=== PATIENT | female | born 1940 | race Caucasian/White ===

== ENCOUNTER 2016-06-15 08:54 | Inpatient (IN) | payer MEDICARE ==
[~2016-06-15] VITALS: Ht 162.6 cm; Wt 62.1 kg
[2016-06-15] VITALS (9 sets, daily range): BP systolic 147–188; BP diastolic 67–94; PULSE 65–79; RESP 14–20; TEMP 96.1–97.6; O2SAT 97–100
[~2016-06-15 08:54] MED LIST: ASPI81 PO; CALC500T21 OR; HYDR-3533 PO; IBUP-232 PO; LAMO100 PO; OCUVTAB PO; TAB-TAB PO; TRAM50 PO
[2016-06-15] MEDS ORDERED: SODIUM CHLORIDE 0.9% FLUSH 10 ML FLUSH IVF PRN (09:00)
[2016-06-15] MEDS ORDERED: LAMO100 PO (09:02)
--- NOTE | 2016-06-15 09:05 | PD ---
HPI Chief Complaint: Neuro Symptoms/ Deficits Time Seen by Provider: 08:59 Travel History International Travel<30 days: No Contact w/Intl Traveler<30days: No Traveled to known affect area: No History of Present Illness HPI The patient is a 75-year-old female who presents emergency department for right sided numbness. The patient states she will do that 11:00 last night , feeling well with no symptoms. The patient awakened this morning at 7:45 AM with dizziness. The patient states she was dizzy, walked down to a friend's house and then developed right sided numbness of the body. The patient states her friend helped her back, she went back to sleep at 8:15 AM. The patient's friend then called EMS and the patient was brought to the emergency department. She does complain of right sided numbness of the arm and leg, also complains of mild weakness the right upper extremity. The patient continues to be dizzy and has a mild headache. She also complains of mild shortness of breath but denies any chest pain, nausea, vomiting, or abdominal pain. The patient denies any previous history of CVA. The patient does have a history of seizure disorder for which she takes Lamictal and is followed by her neurologist, Dr. De Leon. The patient also has a primary physician, Dr. Scott crouch. The patient took 2 full-sized aspirin this morning prior to arrival. PFSH Past Medical History Hx Anticoagulant Therapy: No Cancer: No Cardiovascular Problems: No Chemotherapy: No COPD: Yes Cerebrovascular Accident: No Diabetes: No Diminished Hearing: No Endocrine: No Gastrointestinal Disorders: No GERD: Yes Genitourinary: No Immune Disorder: No Implanted Vascular Access Dvce: No Musculoskeletal: No Neurologic: Yes Psychiatric: No Reproductive: No Respiratory: No Immunizations Current: Yes Seizures: Yes Menopausal: Yes Past Surgical History Hysterectomy: No Tonsillectomy: Yes Other Surgery: No Social History Alcohol Use: No Tobacco Use: No (QUIT 50 YRS +) Substance Use: No Allergies-Medications (Allergen,Severity, Reaction): Coded Allergies: Codeine (Verified Allergy, Severe, increases seizure activity, 10/28/14) Reported Meds & Prescriptions Reported Meds & Active Scripts Active Reported Lamictal (Lamotrigine) 100 Mg Tab 100 Mg PO TID Review of Systems Except as stated in HPI: all other systems reviewed are Neg General / Constitutional: No: Fever Eyes: No: Blurred Vision HENT: No: Headaches, Lightheadedness Cardiovascular: No: Chest Pain or Discomfort Respiratory: Positive: Shortness of Breath Gastrointestinal: No: Nausea, Vomiting, Abdominal Pain Genitourinary: No: Dysuria Musculoskeletal: Positive: Weakness Neurologic: Positive: Dizziness, Headache, Paresthesia, Sensory Disturbance Physical Exam Narrative GENERAL: Awake, alert, pleasant 75-year-old female who appears her stated age and is in no acute respiratory distress. SKIN: Focused skin assessment warm/dry. HEAD: Atraumatic. Normocephalic. EYES: Pupils equal and round. Pupils are 3 mm bilateral and reactive. EOMs are intact. Patient is able to see fingers at a distance of 2 feet without difficulty. Visual soria are symmetric bilaterally. ENT: No nasal bleeding or discharge. Mucous membranes pink and moist. NECK: Trachea midline. No JVD. CARDIOVASCULAR: Regular rate and rhythm. No murmur appreciated. RESPIRATORY: No accessory muscle use. Clear to auscultation. Breath sounds equal bilaterally. GASTROINTESTINAL: Abdomen soft, non-tender, nondistended. No rebound tenderness. MUSCULOSKELETAL: No obvious deformities. No clubbing. No cyanosis. No edema. NEUROLOGICAL: Awake and alert. No obvious cranial nerve deficits. Motor grossly within normal limits. Normal speech. No drift of the upper or lower extremities. Sensation is symmetric on the face, arms, legs bilaterally. Mildly diminished strength with extension and flexion of the right elbow compared to the left. Alert and oriented 4. Follows commands without difficulty. [id number] is normal and finger to nose is normal. PSYCHIATRIC: Appropriate mood and affect; insight and judgment normal. Data Data Last Documented VS Vital Signs Date Time Temp Pulse Resp B/P Pulse Ox O2 Delivery O2 Flow Rate FiO2 06/15/16 09:01 99 Room Air 06/15/16 08:58 71 17 06/15/16 08:55 97.6 Orders Electrocardiogram (06/15/16 09:00) Prothrombin Time / Inr (Pt) (06/15/16 09:00) Act Partial Throm Time (Ptt) (06/15/16 09:00) Complete Blood Count With Diff (06/15/16 09:00) Comprehensive Metabolic Panel (06/15/16 09:00) Creatine Kinase (Cpk) (06/15/16 09:00) Drug Screen, Random Urine (06/15/16 09:00) Troponin I (06/15/16 09:00) Urinalysis - C+S If Indicated (06/15/16:00) Ct Brain W/O Iv Contrast(Rout) (06/15/16 09:00) Chest, Single Ap (06/15/16 09:00) Ecg Monitoring (06/15/16:00) Iv Access Insert/Monitor (06/15/16:00) Oximetry (06/15/16:00) Sodium Chloride 0.9% Flush (Ns Flush) (06/15/16:00) Labs Laboratory Tests Test 06/15/16:00 White Blood Count 5.8 TH/MM3 Red Blood Count 4.03 MIL/MM3 Hemoglobin 12.3 GM/DL Hematocrit 36.9 % Mean Corpuscular Volume 91.7 FL Mean Corpuscular Hemoglobin 30.6 PG Mean Corpuscular Hemoglobin 33.4 % Concent Red Cell Distribution Width 14.5 % Platelet Count 226 TH/MM3 Mean Platelet Volume 7.1 FL Neutrophils (%) (Auto) 62.8 % Lymphocytes (%) (Auto) 22.1 % Monocytes (%) (Auto) 12.1 % Eosinophils (%) (Auto) 2.2 % Basophils (%) (Auto) 0.8 % Neutrophils # (Auto) 3.6 TH/MM3 Lymphocytes # (Auto) 1.3 TH/MM3 Monocytes # (Auto) 0.7 TH/MM3 Eosinophils # (Auto) 0.1 TH/MM3 Basophils # (Auto) 0.0 TH/MM3 CBC Comment DIFF FINAL Differential Comment Prothrombin Time 11.0 SEC Prothromb Time International 1.0 RATIO Ratio Activated Partial 28.1 SEC Thromboplast Time Sodium Level 139 MEQ/L Potassium Level 4.0 MEQ/L Chloride Level 102 MEQ/L Carbon Dioxide Level 30.6 MEQ/L Anion Gap 6 MEQ/L Blood Urea Nitrogen 18 MG/DL Creatinine 0.84 MG/DL Estimat Glomerular Filtration 66 ML/MIN Rate Random Glucose 86 MG/DL Calcium Level 9.2 MG/DL Total Bilirubin 0.3 MG/DL Aspartate Amino Transf 24 U/L (AST/SGOT) Alanine Aminotransferase 21 U/L (ALT/SGPT) Alkaline Phosphatase 50 U/L Total Creatine Kinase 92 U/L Troponin I LESS THAN 0.02 NG/ML Total Protein 7.6 GM/DL Albumin 3.8 GM/DL Exceptions Acute Myocardial Infarction ASA Not Given on Arrival: Already taken by patient MDM Medical Decision Making Medical Screen Exam Complete: Yes Emergency Medical Condition: Yes Medical Record Reviewed: Yes Interpretation(s) EKG reveals normal sinus rhythm with a rate of 71. No ischemic changes or ectopy noted. Last Impressions Head CT 06/15/16899 Signed Impressions: Service Date/Time: Wednesday, June 15, 2016 09:52 - CONCLUSION: Advanced cerebral white matter disease with central atrophy and diffuse hypodensity. Stable exam without evidence of acute infarct, hemorrhage, mass or edema. Bob Hair MD Chest X-Ray 06/15/16899 Signed Impressions: Service Date/Time: Wednesday, June 15, 2016 08:56 - CONCLUSION: No acute disease. Bob Hair MD Laboratory Tests Test 06/15/16 09:00 White Blood Count 5.8 TH/MM3 Red Blood Count 4.03 MIL/MM3 Hemoglobin 12.3 GM/DL Hematocrit 36.9 % Mean Corpuscular Volume 91.7 FL Mean Corpuscular Hemoglobin 30.6 PG Mean Corpuscular Hemoglobin 33.4 % Concent Red Cell Distribution Width 14.5 % Platelet Count 226 TH/MM3 Mean Platelet Volume 7.1 FL Neutrophils (%) (Auto) 62.8 % Lymphocytes (%) (Auto) 22.1 % Monocytes (%) (Auto) 12.1 % Eosinophils (%) (Auto) 2.2 % Basophils (%) (Auto) 0.8 % Neutrophils # (Auto) 3.6 TH/MM3 Lymphocytes # (Auto) 1.3 TH/MM3 Monocytes # (Auto) 0.7 TH/MM3 Eosinophils # (Auto) 0.1 TH/MM3 Basophils # (Auto) 0.0 TH/MM3 CBC Comment DIFF FINAL Differential Comment Prothrombin Time 11.0 SEC Prothromb Time International 1.0 RATIO Ratio Activated Partial 28.1 SEC Thromboplast Time Sodium Level 139 MEQ/L Potassium Level 4.0 MEQ/L Chloride Level 102 MEQ/L Carbon Dioxide Level 30.6 MEQ/L Anion Gap 6 MEQ/L Blood Urea Nitrogen 18 MG/DL Creatinine 0.84 MG/DL Estimat Glomerular Filtration 66 ML/MIN Rate Random Glucose 86 MG/DL Calcium Level 9.2 MG/DL Total Bilirubin 0.3 MG/DL Aspartate Amino Transf 24 U/L (AST/SGOT) Alanine Aminotransferase 21 U/L (ALT/SGPT) Alkaline Phosphatase 50 U/L Total Creatine Kinase 92 U/L Troponin I LESS THAN 0.02 NG/ML Total Protein 7.6 GM/DL Albumin 3.8 GM/DL Differential Diagnosis Differential diagnosis includes CVA, TIA, transient neurologic deficit, intracranial hemorrhage, seizure, complicated migraine, hypocalcemia, hypercalcemia. Narrative Course IV was established, labs are drawn and sent, and the patient was placed on cardiac telemetry monitoring and continuous pulse oximetry monitoring. The patient was not called a stroke alert as she awakened with symptoms, dizziness, however, stat CT of the brain was ordered. The patient took 2 full-size aspirin prior to arrival. EKG was ordered and interpreted. Chest x-ray was obtained. Chest x-rays negative. CT of the brain reveals atrophy and chronic changes, no acute hemorrhage. Labs are unremarkable. The patient will be 23 hour observation to [facility] for further evaluation, she will require echocardiogram and ultrasound of the carotids. Patient appears to have a TIA/CVA with dizziness and right sided numbness as her presenting symptoms. Patient will also benefit from physical therapy evaluation. Physician Communication Physician Communication [facility] was paged for 23 hour observation. Diagnosis Primary Impression: CVA (cerebral vascular accident) Qualified Code: I63.9 - Cerebrovascular accident (CVA), unspecified mechanism Admitting Information Admitting Physician Requests: Observation Condition: Stable James Narayanan MD June 15, 2016 09:05
--- NOTE | 2016-06-15 09:16 | RADRPT ---
EXAM DATE/TIME: 06/15/2016 08:56 [facility] COMPARISON: CHEST SINGLE AP, October 28, 2014, 10:23. INDICATIONS : Patient states syncopal episode, dizziness. MEDICAL HISTORY : None. SURGICAL HISTORY : None. ENCOUNTER: Initial ACUITY: 1 day PAIN SCORE: 0/10 LOCATION: Bilateral chest FINDINGS: A single view of the chest demonstrates the lungs to be symmetrically aerated without evidence of mas s, infiltrate or effusion. The cardiomediastinal contours are unremarkable. Old right-sided rib fra ctures are noted. Osseous structures are otherwise intact. CONCLUSION: No acute disease. Bob Hair MD on June 15, 2016 at 9:14 Board Certified Radiologist. This report was verified electronically.
[2016-06-15 09:22] LABS: AUTOMATED NEUTROPHIL # 3.6 TH/MM3 (1.8-7.7); BASOPHIL % 0.8 % (0.0-2.0); EOSINOPHIL # 0.1 TH/MM3 (0-0.4); EOSINOPHIL % 2.2 % (0.0-4.0); HEMATOCRIT 36.9 % (35.0-46.0); HEMO FLAGS DIFF FINAL; LYMPH % 22.1 % (9.0-44.0); LYMPHOCYTE # 1.3 TH/MM3 (1.0-4.8); MEAN CELL VOLUME 91.7 FL (80.0-100.0); MEAN CORPUSCULAR HEMOGLOBIN 30.6 PG (27.0-34.0); MEAN CORPUSCULAR HGB CONC 33.4 % (32.0-36.0); MONO % 12.1 % (0.0-8.0); NEUT % 62.8 % (16.0-70.0); PLATELET COUNT 226 TH/MM3 (150-450); RED BLOOD COUNT 4.03 MIL/MM3 (4.00-5.30); RED CELL DISTRIBUTION WIDTH 14.5 % (11.6-17.2); WHITE BLOOD COUNT 5.8 TH/MM3 (4.0-11.0)
[2016-06-15 09:33] LABS: APTT (PATIENT) 28.1 SEC (24.3-30.1)
[2016-06-15 09:38] LABS: ANION GAP 6 MEQ/L (5-15); AST (GOT) 24 U/L (15-37); BICARBONATE 30.6 MEQ/L (21.0-32.0); BLOOD UREA NITROGEN 18 MG/DL (7-18); CHLORIDE 102 MEQ/L (98-107); GLOMERULAR FILTRATION RATE 66 ML/MIN (>89); SODIUM (NA) 139 MEQ/L (136-145)
[2016-06-15 09:44] LABS: ALKALINE PHOSPHATASE 50 U/L (45-117); ALT (GPT) 21 U/L (10-53); TOTAL BILIRUBIN ADULT 0.3 MG/DL (0.2-1.0)
[2016-06-15 09:45] LABS: CREATINE KINASE 92 U/L (26-192)
--- NOTE | 2016-06-15 10:03 | RADRPT ---
EXAM DATE/TIME: 06/15/2016 09:52 [facility] COMPARISON: CT BRAIN W/O CONTRAST, October 02, 2015, 13:40. INDICATIONS : Dizziness and cephalgia with right sided numbness since last night. RADIATION DOSE: 40.11 CTDIvol (mGy) MEDICAL HISTORY : Seizures. SURGICAL HISTORY : None. ENCOUNTER: Initial ACUITY: 1 day PAIN SCALE: 5/10 LOCATION: Bilateral head TECHNIQUE: Multiple contiguous axial images were obtained of the head. Using automated exposure control and adj ustment of the mA and/or kV according to patient size, radiation dose was kept as low as reasonably a chievable to obtain optimal diagnostic quality images. FINDINGS: CEREBRUM: Generalized volume loss with ventriculomegaly and prominent subarachnoid space and cisterns throughou t is again noted. There are no cortically based abnormalities to suggest an acute infarct, hemorrhage or mass. Significant hypodensity remains evidence of cerebral white matter which is accompanied by s ignificant volume loss. POSTERIOR FOSSA: Bilateral cerebellar atrophy remains evident. There is no evidence of focal mass effect, infarct or h emorrhage. EXTRACRANIAL: The visualized portion of the orbits is intact. SKULL: The calvaria is intact. No evidence of skull fracture. CONCLUSION: Advanced cerebral white matter disease with central atrophy and diffuse hypodensity. Stable exam without evidence of acute infarct, hemorrhage, mass or edema. Bob Hair MD on June 15, 2016 at 9:59 Board Certified Radiologist. This report was verified electronically.
[2016-06-15] MEDS ORDERED: ACETAMINOPHEN 325 MG TAB PO PRN (10:30)
[2016-06-15] MEDS ORDERED: SODIUM CHLORIDE 0.9% FLUSH 10 ML FLUSH IV FLUSH PRN (10:30)
[2016-06-15] MEDS ORDERED: TEMAZEPAM 15 MG CAP PO PRN (10:30)
[2016-06-15] MEDS ORDERED: BISACODYL 10 MG SUPP RECTAL PRN (10:30)
[2016-06-15] MEDS ORDERED: ONDANSETRON HCL 4 MG/2 ML VIAL IVP PRN (10:30)
[2016-06-15] MEDS ORDERED: NALOXONE HCL 0.4 MG/ML AMP IV PRN (10:30)
[2016-06-15 10:56] LABS: BLOOD, URINE NEG (NEG); GLUCOSE,URINE NEG (NEG); KETONE, URINE NEG (NEG); MUCUS URINE FEW /lpf (OCC); NITRITE,URINE NEG (NEG); URINE COLOR LIGHT-YELLOW (YELLW/STRAW)
[2016-06-15 10:59] LABS: COMMENT (UR) CATH-CULT NOT IND; CULTURE IF INDICATED CATH CULTURE NOT IND
--- NOTE | 2016-06-15 11:35 | EKG ---
Date Performed: 06/15/2016 Time Performed: 09:03:25 PTAGE: 75 years EKG: Sinus rhythm NORMAL ECG PREVIOUS TRACING : 10/02/2015 13.21 DOCTOR: Owen Blackwell Interpretating Date/Time 06/15/2016 11:31:44
--- NOTE | 2016-06-15 12:20 | RADRPT ---
EXAM DATE/TIME: 06/15/2016 11:33 [facility] COMPARISON: No previous studies available for comparison. INDICATIONS : Transient ischemic attack. MEDICAL HISTORY : Seizures. COPD. GERD. SURGICAL HISTORY : Tonsillectomy. ENCOUNTER: Initial ACUITY: 1 day PAIN SCORE: 0/10 LOCATION: Bilateral neck PEAK SYSTOLIC VELOCITIES (cm/sec): ICA/CCA RATIO: Right: 1.4 Left: 0.9 ICA: Right: 96 Left: 62 CCA: Right: 62 Left: 68 ECA: Right: 95 Left: 78 VERTEBRAL: Right: 53 antegrade Left: 26 antegrade Elevated flow velocities and ICA/CCA ratios have been found to correlate with increased degrees of vessel stenosis, calculated as percentage of diameter relative to a normal segment of distal ICA/CCA FINDINGS: RIGHT CAROTID: There is no evidence for a hemodynamically significant carotid stenosis. Minimal int imal hyperplasia is present with scattered calcific plaque. LEFT CAROTID: There is no evidence for a hemodynamically significant carotid stenosis. Minimal inti mal hyperplasia is present with scattered calcific plaque. VERTEBRAL ARTERIES: Flow is antegrade in both vertebral arteries. MISCELLANEOUS: There are no ancillary masses or adenopathy. CONCLUSION: Negative examination for a hemodynamically significant carotid stenosis. Alex Estrada MD FACR Board Certified Radiologist. This report was verified electronically.
--- NOTE | 2016-06-15 12:46 | RADRPT ---
EXAM DATE/TIME: 06/15/2016 11:58 [facility] COMPARISON: MRA BRAIN W/O CONTRAST, June 15, 2016, 11:58. INDICATIONS : Right arm and left leg numbness. MEDICAL HISTORY : Epilepsy SURGICAL HISTORY : None. ENCOUNTER: Initial ACUITY: 1 day PAIN SCORE: 0/10 LOCATION: Cranial TECHNIQUE: Multiplanar, multisequence MRI of the brain was performed without contrast. FINDINGS: There is marked periventricular white matter changes associated with central and cortical atrophy. T here is no restricted diffusion to suggest an acute ischemic event. Atrophy does extend into the cer ebellum. Midline structures are intact. There is no parenchymal hemorrhage identified. CONCLUSION: 1. Marked central and cortical atrophy with extensive periventricular white matter changes. 2. There is no evidence for an acute ischemic event. Alex Estrada MD FACR on June 15, 2016 at 12:41 Board Certified Radiologist. This report was verified electronically.
--- NOTE | 2016-06-15 12:47 | RADRPT ---
EXAM DATE/TIME: 06/15/2016 11:58 [facility] COMPARISON: No previous studies available for comparison. INDICATIONS : Right arm and left leg numbness. MEDICAL HISTORY : Epilepsy SURGICAL HISTORY : None. ENCOUNTER: Initial ACUITY: 1 day PAIN SCORE: 0/10 LOCATION: Cranial Please note a normal MRA of the brain does not entirely exclude the possibility of a small aneurysm, nor the possibility of distal intracranial vessel disease. TECHNIQUE: 3D time of flight MRA was performed. Source images, multiplanar STS MIP, and 3D volume MIP reconstru ctions were reviewed. FINDINGS: There is no major branch vessel occlusion, aneurysm or vascular displacement. The right posterior cerebellar artery arises from the anterior circulation normal variant. CONCLUSION: Negative MRA of the brain. Alex Estrada MD FACR on June 15, 2016 at 12:42 Board Certified Radiologist. This report was verified electronically.
--- NOTE | 2016-06-15 13:14 | HHI.HP ---
HPI Service [facility] Hospitalists Primary Care Physician Scott Tarango MD Admission Diagnosis Dizziness, right sided numbness Chief Complaint: Right sided numbness, weakness Travel History International Travel<30 Days: No Contact w/Intl Traveler <30 Da: No Traveled to Known Affected Are: No History of Present Illness Ms. Moore is a 75 y/o WF with seizure disorder, COPD, and cerebellar tremor who presented to the ED at [facility] on 06/15/16 with complaints of right sided numbness. The patient states she went to bed last night around 11:00PM and was feeling well with no symptoms. She awakened this morning at 7:45 AM with dizziness. The patient states she was dizzy and walked down to a friend's house and then developed numbness on the right side of her body. The patient states her friend helped her back home and she went back to sleep at 8:15 AM. The patient's friend then called EMS and she was brought to the emergency department. She does complain of right sided numbness of the arm and leg and has continued to be dizzy and has a mild headache. She also complains of mild shortness of breath but denies any chest pain, nausea, vomiting, or abdominal pain. The patient denies any previous history of CVA. The patient took 2 full- sized aspirin this morning prior to arrival. Head CT noted advanced cerebral white matter disease with central atrophy and diffuse hypodensity, stable exam without evidence of acute infarct, hemorrhage, mass or edema. Carotid US was negative examination for a hemodynamically significant carotid stenosis. Review of Systems Constitutional: DENIES: Fever, Chills Eyes: DENIES: Vision loss Ears, nose, mouth, throat: DENIES: Hearing loss Respiratory: DENIES: Cough, Shortness of breath Cardiovascular: COMPLAINS OF: Dyspnea on Exertion, DENIES: Chest pain, Palpitations, Lower Extremity Edema Gastrointestinal: DENIES: Abdominal pain, Diarrhea, Nausea, Vomiting Genitourinary: DENIES: Hematuria, Dysuria Musculoskeletal: DENIES: Neck pain Integumentary: DENIES: Rash Hematologic/lymphatic: DENIES: Bruising Neurologic: COMPLAINS OF: Localized weakness, Paresthesias, DENIES: Seizures, Speech Problems Past Family Social History Past Medical History Epilepsy, complex partial seizure disorder and sees Dr Meek Obstructive sleep apnea, never used the CPAP Restless leg syndrome Carotid artery disease Cerebellar tremor Anxiety Hx of colon polyps Allergic rhinitis Urinary incontinence COPD Stage 2 CKD, GFR was 82 on 07-10-15. 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 SKIN: No rashes, ecchymoses or lesions. Cool and dry. HEAD: Atraumatic. Normocephalic. No temporal or scalp tenderness. EYES: Pupils equal round and reactive. Extraocular motions intact. No scleral icterus. No injection or drainage. ENT: Nose without bleeding, purulent drainage or septal hematoma. Throat without erythema, tonsillar hypertrophy or exudate. Uvula midline. Airway patent. NECK: Trachea midline. No JVD or lymphadenopathy. Supple, nontender, no meningeal signs. CARDIOVASCULAR: Regular rate and rhythm without murmurs, gallops, or rubs. RESPIRATORY: Clear to auscultation. Breath sounds equal bilaterally. No wheezes , rales, or rhonchi. GASTROINTESTINAL: Abdomen soft, non-tender, nondistended. No hepato-splenomegaly , or palpable masses. No guarding. MUSCULOSKELETAL: Extremities without clubbing, cyanosis, or edema. No joint tenderness, effusion, or edema noted. No calf tenderness. Negative Homans sign bilaterally. NEUROLOGICAL: Awake and alert. Cranial nerves II through XII intact. Motor and sensory grossly within normal limits. Five out of 5 muscle strength in all muscle groups. Normal speech. Laboratory Laboratory Tests Test 06/15/16 06/15/16 09:00 10:15 White Blood Count 5.8 Red Blood Count 4.03 Hemoglobin 12.3 Hematocrit 36.9 Mean Corpuscular Volume 91.7 Mean Corpuscular Hemoglobin 30.6 Mean Corpuscular Hemoglobin 33.4 Concent Red Cell Distribution Width 14.5 Platelet Count 226 Mean Platelet Volume 7.1 Neutrophils (%) (Auto) 62.8 Lymphocytes (%) (Auto) 22.1 Monocytes (%) (Auto) 12.1 Eosinophils (%) (Auto) 2.2 Basophils (%) (Auto) 0.8 Neutrophils # (Auto) 3.6 Lymphocytes # (Auto) 1.3 Monocytes # (Auto) 0.7 Eosinophils # (Auto) 0.1 Basophils # (Auto) 0.0 CBC Comment DIFF FINAL Differential Comment Prothrombin Time 11.0 Prothromb Time International 1.0 Ratio Activated Partial 28.1 Thromboplast Time Sodium Level 139 Potassium Level 4.0 Chloride Level 102 Carbon Dioxide Level 30.6 Anion Gap 6 Blood Urea Nitrogen 18 Creatinine 0.84 Estimat Glomerular Filtration 66 Rate Random Glucose 86 Calcium Level 9.2 Total Bilirubin 0.3 Aspartate Amino Transf 24 (AST/SGOT) Alanine Aminotransferase 21 (ALT/SGPT) Alkaline Phosphatase 50 Total Creatine Kinase 92 Troponin I LESS THAN 0.02 Total Protein 7.6 Albumin 3.8 Urine Color LIGHT-YELLOW Urine Turbidity CLEAR Urine pH 7.0 Urine Specific [place] 1.007 Urine Protein NEG Urine Glucose (UA) NEG Urine Ketones NEG Urine Occult Blood NEG Urine Nitrite NEG Urine Bilirubin NEG Urine Urobilinogen LESS THAN 2.0 Urine Leukocyte Esterase TRACE Urine WBC 3 Urine Mucus FEW Microscopic Urinalysis Comment CATH-CULT NOT IND Result Diagram: 06/15/1689906/15/16899 Imaging Last Impressions Head CT 06/15/16899 Signed Impressions: Service Date/Time: Wednesday, June 15, 2016 09:52 - CONCLUSION: Advanced cerebral white matter disease with central atrophy and diffuse hypodensity. Stable exam without evidence of acute infarct, hemorrhage, mass or edema. Bob Hair MD Chest X-Ray 06/15/16899 Signed Impressions: Service Date/Time: Wednesday, June 15, 2016 08:56 - CONCLUSION: No acute disease. Bob Hair MD Carotid Artery Ultrasound 06/15/16 0000 Signed Impressions: Service Date/Time: Wednesday, June 15, 2016 11:33 - CONCLUSION: Negative examination for a hemodynamically significant carotid stenosis. Alex Estrada MD Septic Shock Reassessment Heart: Regular rate and rhythm Lungs: Clear Skin: Warm Assessment and Plan Problem List: (1) Right sided weakness Status: Acute Plan: - Pt is a 75 y/o female with seizure disorder and COPD who presented to the ED with complaints of dizziness and right sided numbness/weakness. - Head CT --> Advanced cerebral white matter disease with central atrophy and diffuse hypodensity. Stable exam without evidence of acute infarct, hemorrhage, mass or edema. - Carotid US --> Negative examination for a hemodynamically significant carotid stenosis. - Check MRI/MRA brain - Pts BP is elevated and she is not on any outpt BP meds, if MRI/MRA is negative we will start Lisinopril - Telemetry - Holter - 2D echo - PT evaluation - Check Lamictal level - DVT prophylaxis with SCDs (2) Seizure disorder Status: Chronic Plan: - Pt with complex partial seizure disorder and follows with Dr Meek - Check Lamictal level - Cont. home meds (3) COPD (chronic obstructive pulmonary disease) Status: Chronic Plan: - Pt with some mild SOB with exertion but no cough, congestion, or cold symptoms - CXR with no acute disease - No wheezing on examination - Duonebs PRN Assessment and Plan Patient examined. Assessment and plan formulated with Adwoa Edmond PA-C. I agree with the above. CT brain 06/15/16 --> NO acute findings MRI brain 06/15/16 --> NO acute findings MRA brain 06/16/16 --> NO acute findings Carotid US 06/16/16 --> NO hemodynamically significant stenosis Echocardiogram --> performed, interpretation pending Holter --> pending - obtain TSH, free T4, b12, folate RPR - findings do NOT indicate CVA - suspect vertigo - anticipate d/c to home 06/16 - prn antivert - outpt vestibular rehab Physician Certification 2 Midnight Certification Type: Admission for Inpatient Services Order for Inpatient Services The services are ordered in accordance with Medicare regulations or non- Medicare payer requirements, as applicable. In the case of services not specified as inpatient-only, they are appropriately provided as inpatient services in accordance with the 2-midnight benchmark. Estimated LOS (days): 3 3 days is the estimated time the patient will need to remain in the hospital, assuming treatment plan goals are met and no additional complications. Post-Hospital Plan: Not yet determined Adwoa Edmond June 15, 2016 13:14 Sang Bruce DO June 16, 2016 00:42
[2016-06-15 14:12] LABS: AMPHETAMINE, URINE NEG (NEG); BARBITURATES, URINE NEG (NEG); COCAINE, URINE NEG (NEG)
[2016-06-15] MEDS ORDERED: cloNIDine HCL 0.2 MG TAB PO PRN ×2 (16:15)
[2016-06-15] MEDS: LISINOPRIL 10 MG TAB PO SCH ×2 (16:38→22:11)
--- NOTE | 2016-06-15 19:01 | EC ---
Study Study Date:06/15/2016 STUDY CONCLUSIONS SUMMARY - Left ventricle: The cavity size was normal. Wall thickness was normal. Systolic function was normal. The estimated ejection fraction was in the range of 50% to 55%. Wall motion was normal; there were no regional wall motion abnormalities. - Aortic valve: Valve area: 1.49cm^2(VTI). Valve area: 1.46cm^2 (Vmax). - Mitral valve: Mild regurgitation. - Tricuspid valve: Mild regurgitation. If LV function is below 40, please consider prescribing an ACEI or ARB or document rationale for non-use. PROCEDURE DATA STUDY STATUS: Elective. Procedure: Transthoracic echocardiography. Image quality was good. Scanning was performed from the parasternal, apical, and subcostal acoustic windows. Study completion: The patient tolerated the procedure well. Transthoracic echocardiography. M-mode, complete 2D, complete spectral Doppler, and color Doppler. Height: Height: 64in. Weight: Weight: 133.7lb. Body mass index: BMI: 23kg/m^2. Body surface area: BSA: 1.65m^2. Patient status: Inpatient. CARDIAC ANATOMY LEFT VENTRICLE: The cavity size was normal. Wall thickness was normal. Systolic function was normal. The estimated ejection fraction was in the range of 50% to 55%. Wall motion was normal; there were no regional wall motion abnormalities. AORTIC VALVE: Trileaflet; normal thickness leaflets. Doppler: Transvalvular velocity was within the normal range. There was no stenosis. No regurgitation. Valve area: 1.49cm^2(VTI). Indexed valve area: 0.9cm^2/m^2 (VTI). Valve area: 1.46cm^2 (Vmax). Indexed valve area: 0.88cm^2/m^2 (Vmax). Mean gradient: 3mm Hg (S). AORTA: Aortic root: The aortic root was normal in size. MITRAL VALVE: Structurally normal valve. Doppler: Transvalvular velocity was within the normal range. There was no evidence for stenosis. Mild regurgitation. LEFT ATRIUM: The atrium was normal in size. RIGHT VENTRICLE: The cavity size was normal. Wall thickness was normal. PULMONIC VALVE: Doppler: Transvalvular velocity was within the normal range. There was no evidence for stenosis. No regurgitation. TRICUSPID VALVE: Structurally normal valve. Doppler: Transvalvular velocity was within the normal range. Mild regurgitation. Peak gradient: 22mm Hg (D). PULMONARY ARTERY: The main pulmonary artery was normal-sized. Systolic pressure was within the normal range. RIGHT ATRIUM: The atrium was normal in size. PERICARDIUM: There was no pericardial effusion. SYSTEMIC VEINS: Inferior vena cava: The vessel was normal in size. Patient weight: 133.7lb _Ejection fraction:_ 65-75% _Fractional shortening:_ 32% up to 5Kg 5-11.5Kg 11.6-22.9Kg 23-45Kg 45-57Kg Aortic Root 7-13 <17 13-22 17-27 17-27 LA diam 6-13 <23 24-38 33-47 37-40 RVID 10-17 7-15 7-15 7-18 8-17 LVIDd 12-22 <32 24-38 33-47 37-40 LVPW 2-4 3-6 5-7 6-8 7-8 IVS 2-4 3-6 5-7 6-8 7-8 BASIC MEASUREMENTS ADULT NORMAL Left ventricle LV internal dimension, ED, chordal *33.9 mm 43-52 level, PLAX LV internal dimension, ES, chordal 26.3 mm 23-38 level, PLAX Fractional shortening, chordal level, *22 % >29 PLAX LV posterior wall thickness, ED 13.3 mm IVS/LVPW ratio, ED 1 <1.3 Ventricular septum Septal thickness, ED 13.3 mm Aortic valve Leaflet separation 15 mm 15-26 Aorta Root diameter, ED 30 mm Left atrium Anterior-posterior dimension 31 mm Anterior-posterior dimension index 1.88 cm/m^2 <2.2 BASIC MEASUREMENTS ADULT NORMAL Aortic valve Leaflet separation 15 mm 15-26 DOPPLER MEASUREMENTS ADULT NORMAL Left ventricle IVRT *106 ms 60-100 Aortic valve Peak velocity, S 114 cm/s Mean velocity, S 73.2 cm/s VTI, S 23.4 cm Mean gradient, S 3 mm Hg Valve area, VTI 1.49 cm^2 Valve area index, VTI 0.9 cm^2/m^2 Valve area, Vmax 1.46 cm^2 Valve area index, Vmax 0.88 cm^2/m^2 Tricuspid valve Peak gradient, D 22 mm Hg Maximal inflow velocity 236 cm/s Systemic veins Estimated CVP 10 mm Hg Pulmonic valve Peak velocity, S 81.6 cm/s LEGEND: Mean values are shown as u=mean value. Asterisk (*) brown values outside specified normal range. Prepared and signed by Owen Blackwell [id number]
[2016-06-15] MEDS: SODIUM CHLORIDE 0.9% FLUSH 10 ML FLUSH IV FLUSH SCH (22:11)
[2016-06-16] VITALS: BP 140/53; PULSE 56; RESP 18; TEMP 98.5; O2SAT 97
[2016-06-16 03:00] VITALS: PULSE 65
[2016-06-16 04:00] VITALS: BP 151/72; PULSE 67; RESP 18; TEMP 97; O2SAT 98
[2016-06-16 07:16] LABS: BASOPHIL % 0.8 % (0.0-2.0); EOSINOPHIL # 0.1 TH/MM3 (0-0.4); EOSINOPHIL % 2.9 % (0.0-4.0); HEMATOCRIT 34.5 % (35.0-46.0); HEMO FLAGS DIFF FINAL; LYMPH % 24.1 % (9.0-44.0); LYMPHOCYTE # 1.2 TH/MM3 (1.0-4.8); MEAN CELL VOLUME 91.2 FL (80.0-100.0); MEAN CORPUSCULAR HEMOGLOBIN 30.3 PG (27.0-34.0); MEAN CORPUSCULAR HGB CONC 33.2 % (32.0-36.0); MONO % 11.8 % (0.0-8.0); NEUT % 60.4 % (16.0-70.0); PLATELET COUNT 210 TH/MM3 (150-450); RED BLOOD COUNT 3.78 MIL/MM3 (4.00-5.30); RED CELL DISTRIBUTION WIDTH 14.3 % (11.6-17.2)
[2016-06-16 07:44] LABS: BICARBONATE 28.6 MEQ/L (21.0-32.0); POTASSIUM 3.9 MEQ/L (3.5-5.1)
[2016-06-16 08:00] VITALS: PULSE 71
[2016-06-16] MEDS: SODIUM CHLORIDE 0.9% FLUSH 10 ML FLUSH IV FLUSH SCH (08:22)
[2016-06-16] MEDS: LISINOPRIL 10 MG TAB PO SCH (08:23)
[2016-06-16 08:25] LABS: FREE T4 0.92 NG/DL (0.76-1.46)
[2016-06-16 08:30] VITALS: BP 167/67; PULSE 63; RESP 18; TEMP 96.5; O2SAT 95
[2016-06-16 10:47] LABS: RAPID PLASMA REAGIN SCREEN REACTIVE (NON-REACTVE)
[2016-06-16 11:00] VITALS: BP 150/66; PULSE 64; RESP 18; TEMP 96.5; O2SAT 99
[2016-06-16] MEDS ORDERED: MECL12.574 PO (14:03)
[2016-06-16] MEDS ORDERED: LISI-515 PO (14:08)
--- NOTE | 2016-06-16 14:11 | HHI.PR ---
Subjective Remarks Pt reports that the dizziness has resolved. She denies weakness in her extremities. Pt is anxious for discharge. Her BP has still been elevated with systolic in the 140-160's today Objective Vitals Vital Signs Date Time Temp Pulse Resp B/P Pulse Ox O2 Delivery O2 Flow Rate FiO2 06/16/16 11:00 96.5 64 18 150/66 99 06/16/16 08:30 96.5 63 18 167/67 95 06/16/16 08:00 71 06/16/16 04:00 97.0 67 18 151/72 98 06/16/16 03:00 65 06/16/16 00:00 98.5 56 18 140/53 97 06/15/16 21:57 97.6 68 18 149/67 98 06/15/16 19:50 65 06/15/16 17:10 96.6 66 16 147/68 97 06/15/16 16:23 65 Result Diagram: 06/16/16 0655 06/16/16 0655 Other Results Laboratory Tests Test 06/15/16 06/15/16 06/16/16 09:00 10:15 06:55 White Blood Count 5.8 TH/MM3 5.0 TH/MM3 Red Blood Count 4.03 MIL/MM3 3.78 MIL/MM3 Hemoglobin 12.3 GM/DL 11.4 GM/DL Hematocrit 36.9 % 34.5 % Mean Corpuscular Volume 91.7 FL 91.2 FL Mean Corpuscular Hemoglobin 30.6 PG 30.3 PG Mean Corpuscular Hemoglobin 33.4 % 33.2 % Concent Red Cell Distribution Width 14.5 % 14.3 % Platelet Count 226 TH/MM3 210 TH/MM3 Mean Platelet Volume 7.1 FL 7.0 FL Neutrophils (%) (Auto) 62.8 % 60.4 % Lymphocytes (%) (Auto) 22.1 % 24.1 % Monocytes (%) (Auto) 12.1 % 11.8 % Eosinophils (%) (Auto) 2.2 % 2.9 % Basophils (%) (Auto) 0.8 % 0.8 % Neutrophils # (Auto) 3.6 TH/MM3 3.0 TH/MM3 Lymphocytes # (Auto) 1.3 TH/MM3 1.2 TH/MM3 Monocytes # (Auto) 0.7 TH/MM3 0.6 TH/MM3 Eosinophils # (Auto) 0.1 TH/MM3 0.1 TH/MM3 Basophils # (Auto) 0.0 TH/MM3 0.0 TH/MM3 CBC Comment DIFF FINAL DIFF FINAL Differential Comment Prothrombin Time 11.0 SEC Prothromb Time International 1.0 RATIO Ratio Activated Partial 28.1 SEC Thromboplast Time Sodium Level 139 MEQ/L 141 MEQ/L Potassium Level 4.0 MEQ/L 3.9 MEQ/L Chloride Level 102 MEQ/L 105 MEQ/L Carbon Dioxide Level 30.6 MEQ/L 28.6 MEQ/L Anion Gap 6 MEQ/L 7 MEQ/L Blood Urea Nitrogen 18 MG/DL 14 MG/DL Creatinine 0.84 MG/DL 0.69 MG/DL Estimat Glomerular Filtration 66 ML/MIN 83 ML/MIN Rate Random Glucose 86 MG/DL 94 MG/DL Calcium Level 9.2 MG/DL 8.9 MG/DL Total Bilirubin 0.3 MG/DL Aspartate Amino Transf 24 U/L (AST/SGOT) Alanine Aminotransferase 21 U/L (ALT/SGPT) Alkaline Phosphatase 50 U/L Total Creatine Kinase 92 U/L Troponin I LESS THAN 0.02 NG/ML Total Protein 7.6 GM/DL Albumin 3.8 GM/DL Urine Color LIGHT-YELLOW Urine Turbidity CLEAR Urine pH 7.0 Urine Specific [place] 1.007 Urine Protein NEG mg/dL Urine Glucose (UA) NEG mg/dL Urine Ketones NEG mg/dL Urine Occult Blood NEG Urine Nitrite NEG Urine Bilirubin NEG Urine Urobilinogen LESS THAN 2.0 MG/DL Urine Leukocyte Esterase TRACE Urine WBC 3 /hpf Urine Mucus FEW /lpf Microscopic Urinalysis Comment CATH-CULT NOT IND Urine Opiates Screen NEG Urine Barbiturates Screen NEG Urine Amphetamines Screen NEG Urine Benzodiazepines Screen NEG Urine Cocaine Screen NEG Urine Cannabinoids Screen NEG Ammonia 28 MCMOL/L Vitamin B12 Level GREATER THAN 2000 PG/ML Folate GREATER THAN 20.0 NG/ML Free Thyroxine 0.92 NG/DL Thyroid Stimulating Hormone 1.070 uIU/ML 3rd Gen Rapid Plasma Reagin Titer 1:1 Rapid Plasma Reagin REACTIVE Imaging Last Impressions Head CT 06/15/16 0900 Signed Impressions: Service Date/Time: Wednesday, June 15, 2016 09:52 - CONCLUSION: Advanced cerebral white matter disease with central atrophy and diffuse hypodensity. Stable exam without evidence of acute infarct, hemorrhage, mass or edema. Bob Hair MD Chest X-Ray 06/15/16 0900 Signed Impressions: Service Date/Time: Wednesday, June 15, 2016 08:56 - CONCLUSION: No acute disease. Bob Hair MD Head Magnetic Resonance Angiography 06/15/16 0000 Signed Impressions: Service Date/Time: Wednesday, June 15, 2016 11:58 - CONCLUSION: Negative MRA of the brain. Alex Estrada MD FACR Carotid Artery Ultrasound 06/15/16 0000 Signed Impressions: Service Date/Time: Wednesday, June 15, 2016 11:33 - CONCLUSION: Negative examination for a hemodynamically significant carotid stenosis. Alex Estrada MD Brain MRI 06/15/16 0000 Signed Impressions: Service Date/Time: Wednesday, June 15, 2016 11:58 - CONCLUSION: 1. Marked central and cortical atrophy with extensive periventricular white matter changes. 2. There is no evidence for an acute ischemic event. Alex Estrada MD FACR Objective Remarks General: NAD, AAOx3 Chest: CTA Cardiac: Regular Abd: +BS, soft ND/NT Ext: No edema A/P Problem List: (1) Dizziness Status: Acute Plan: - Pt is a 75 y/o female with seizure disorder and COPD who presented to the ED with complaints of dizziness and right sided numbness/weakness. Pts symptoms have resolved. Imaging was negative for an acute CVA. Her dizziness seemed to be related to elevated BP vs. vertigo vs. other. Pt is very vague about the symptoms initially reported as right sided numbness which she is now stating that she is unclear that she experienced any specific numbness or weakness. Her neuro examination is stable and equal strength bilaterally. - Head CT --> Advanced cerebral white matter disease with central atrophy and diffuse hypodensity. Stable exam without evidence of acute infarct, hemorrhage, mass or edema. - Carotid US --> Negative examination for a hemodynamically significant carotid stenosis. - MRI Brain --> Marked central and cortical atrophy with extensive periventricular white matter changes. There is no evidence for an acute ischemic event. - MRA brain was negative. - Pts BP is elevated ans she was started on Lisinopril 10mg Q12H on 06/15 but BP still running with systolic in the 140-160's today. We will increase to 20mg po BID at discharge. - Telemetry without any specific abnormality - Holter --> pending. - 2D echo (06/15) --> estimated EF 50-55%, mild mitral regurgitation, mild tricuspid regurgitation. - PT evaluation - Lamictal level pending. - Pt noted to have a positive RPR with titer of 1:1. We will order a confirmatory test which will need to be followed up on by her PCP, Dr. Tarango. - Pt anxious for discharge today. - She will need to followup with her PCP, Dr. Scott Tarango, in 1 week - Pt is to followup with Dr. Meek in 2 weeks. (2) Right sided weakness Status: Acute Plan: - See above. (3) HTN (hypertension) Status: Acute Plan: - Pts BP noted to be elevated at admission. - She was started on Lisinopril 10mg po BID. - Pt has remained elevated with systolic in the 140-160's - We will increase to Lisinopril 20mg po BID at discharge. - Pt is to keep a BP log at home of her home readings to present to her PCP at followup. (4) Seizure disorder Status: Chronic Plan: - Pt with complex partial seizure disorder and follows with Dr Meek - Lamictal level pending - Cont. home meds (5) COPD (chronic obstructive pulmonary disease) Status: Chronic Plan: - Pt with some mild SOB with exertion but no cough, congestion, or cold symptoms - CXR with no acute disease - No wheezing on examination - Duonebs PRN Assessment and Plan Patient examined. Assessment and plan formulated with Adwoa Edmond PA-C. I agree with the above. Pt clinically improved. FTA-ABS drawn prior to d/c as confirmatory test for pt's positive RPR. PCP, Dr. Tarango, made aware. Pt to keep home BP log. Pt discharged on lisinopril 20mg BID. Her BP medication will likely require further adjustment outpt. Pt's symptoms may have been d/t hypertensive encephalopathy vs vertigo. Prn meclizine. f/u with Neurologist, Dr. Marcelino. Adwoa Edmond June 16, 2016 14:11 Sang Bruce DO June 17, 2016 00:20
--- NOTE | 2016-06-16 15:49 | EKG ---
Date Performed: 06/15/2016 Time Performed: 15:58:51 PTAGE: 75 years EKG: Sinus rhythm POSSIBLE RIGHT VENTRICULAR CONDUCTION DELAY Compared to prior tracing no significant change BORDERLI NE ECG PREVIOUS TRACING : 06/15/2016 09.03 DOCTOR: Balaji Delarosa Interpretating Date/Time 06/16/2016 15:46:16
== END 2016-06-16 15:30 | disposition home or self-care (01) | DRG 149 ==
LOC: NEPE 08:54 → NEDA 10:38 → N05A 12:31
PROVIDERS: ADMIT Hospitalist; ATTEND Hospitalist
DX: R42 Dizziness and giddiness (principal); G40.209 Localization-related (focal) (partial) symptomatic epilepsy and epileptic syndromes with complex partial seizures, not intractable, without status epilepticus; J44.9 Chronic obstructive pulmonary disease, unspecified; R53.1 Weakness; R20.0 Anesthesia of skin; R25.1 Tremor, unspecified; G47.33 Obstructive sleep apnea (adult) (pediatric); G25.81 Restless legs syndrome; F41.9 Anxiety disorder, unspecified; J30.9 Allergic rhinitis, unspecified; Z87.891 Personal history of nicotine dependence; N18.2 Chronic kidney disease, stage 2 (mild); I12.9 Hypertensive chronic kidney disease with stage 1 through stage 4 chronic kidney disease, or unspecified chronic kidney disease; M19.90 Unspecified osteoarthritis, unspecified site; Z86.010 Personal history of colon polyps
CPT/HCPCS: 70450; 70544; 70551; 71010; 80048; 80053; 80175; 80307; 81001; 82140; 82550; 82607; 82746; 84439; 84443; 84484; 85025; 85610; 85730; 86592; 86593; 86780; 93005; 93306; 93880

== ENCOUNTER 2016-10-01 07:17 | Emergency (ER) | payer MEDICARE ==
[~2016-10-01] VITALS: Ht 157.5 cm; Wt 55.0 kg
[~2016-10-01 07:17] MED LIST changes: -ASPI81 PO; -CALC500T21 OR; -HYDR-3533 PO; -IBUP-232 PO; +LISI-515 PO; +MECL12.574 PO; -OCUVTAB PO; -TAB-TAB PO; -TRAM50 PO
[2016-10-01 07:26] VITALS: BP 193/82; PULSE 67; RESP 16; TEMP 97.9; O2SAT 97
[2016-10-01 07:29] VITALS: O2SAT 97
[2016-10-01] MEDS ORDERED: SODIUM CHLORIDE 0.9% FLUSH 10 ML FLUSH IVF PRN (07:30)
--- NOTE | 2016-10-01 07:49 | RADRPT ---
EXAM DATE/TIME: 10/01/2016 07:38 [place] COMPARISON: MRI BRAIN W/O CONTRAST, June 15, 2016, 11:58. CT BRAIN W/O CONTRAST, June 15, 2016, 9:52. INDICATIONS : Left facial, upper extremity and lower extremity tingling and weakness. Evaluate for cerebrovascular accident. RADIATION DOSE: 64.06 CTDIvol (mGy) MEDICAL HISTORY : Seizures. Chronic obstructive pulmonary disease. Gastroesophageal reflux disease. SURGICAL HISTORY : None. ENCOUNTER: Initial ACUITY: 1 day PAIN SCALE: 0/10 LOCATION: cranial TECHNIQUE: Multiple contiguous axial images were obtained of the head. Using automated exposure control and adj ustment of the mA and/or kV according to patient size, radiation dose was kept as low as reasonably a chievable to obtain optimal diagnostic quality images. DICOM format image data is available electro nically for review and comparison. FINDINGS: Noted are vascular calcifications of the internal carotid arteries in the siphon and vertebral arteri es at foramen. Intracranially there is extensive periventricular deep white matter microvascular isch emic demyelination unchanged. There is no acute hemorrhage, mass, infarction or extracerebral defect. CONCLUSION: Stable CT brain scan with extensive deep white matter periventricular microvascular ischemic lacerati on and associated atrophy. No acute change her findings Arun Beltran MD on October 01, 2016 at 7:45 Board Certified Radiologist. This report was verified electronically.
[2016-10-01 07:57] LABS: AUTOMATED NEUTROPHIL # 2.5 TH/MM3 (1.8-7.7); BASOPHIL # 0.1 TH/MM3 (0-0.2); BASOPHIL % 1.2 % (0.0-2.0); EOSINOPHIL # 0.2 TH/MM3 (0-0.4); EOSINOPHIL % 3.5 % (0.0-4.0); HEMATOCRIT 35.7 % (35.0-46.0); HEMO FLAGS DIFF FINAL; LYMPH % 31.6 % (9.0-44.0); LYMPHOCYTE # 1.6 TH/MM3 (1.0-4.8); MEAN CELL VOLUME 90.7 FL (80.0-100.0); MEAN CORPUSCULAR HEMOGLOBIN 29.9 PG (27.0-34.0); NEUT % 48.7 % (16.0-70.0); PLATELET COUNT 247 TH/MM3 (150-450); RED BLOOD COUNT 3.93 MIL/MM3 (4.00-5.30); RED CELL DISTRIBUTION WIDTH 13.9 % (11.6-17.2); WHITE BLOOD COUNT 5.2 TH/MM3 (4.0-11.0)
[2016-10-01 08:08] LABS: APTT (PATIENT) 32.2 SEC (24.3-30.1); PROTHROMBIN TIME - PATIENT 11.3 SEC (9.8-11.6)
[2016-10-01 08:09] LABS: BICARBONATE 27.4 MEQ/L (21.0-32.0); POTASSIUM 4.4 MEQ/L (3.5-5.1)
--- NOTE | 2016-10-01 08:17 | EKG ---
Date Performed: 10/01/2016 Time Performed: 07:31:07 PTAGE: 76 years EKG: Sinus rhythm POSSIBLE RIGHT VENTRICULAR CONDUCTION DELAY BORDERLINE ECG PREVIOUS TRACING : 06/15/2016 15.58 No significant change from previous tracing noted. DOCTOR: Leodan Amaya Interpretating Date/Time 10/01/2016 08:15:22
--- NOTE | 2016-10-01 08:18 | PD ---
HPI . Left-sided numbness Chief Complaint: Neuro Symptoms/ Deficits Time Seen by Provider: 07:22 Travel History International Travel<30 days: No Contact w/Intl Traveler<30days: No Traveled to known affect area: No History of Present Illness HPI This patient presents with a chief complaint of numbness on her left side. She noted this on awakening this morning. Symptoms have been persistent since that time. She states that the symptoms are mild. Her only other associated symptom is mild blurred vision in the left eye. She states that she took 2 regular strength aspirin prior to presentation. Symptoms have been unchanged following the aspirin. The patient reports that she had a previous similar history many months ago. She states that she was seen here and evaluated and subsequently discharged. She states that she was instructed to take aspirin. She admits that she does not take aspirin daily. PFSH Past Medical History Hx Anticoagulant Therapy: No Cancer: No Cardiovascular Problems: No Chemotherapy: No COPD: Yes Cerebrovascular Accident: Yes (states hx of) Diabetes: No Diminished Hearing: No Endocrine: No Gastrointestinal Disorders: No GERD: Yes Genitourinary: No Immune Disorder: No Implanted Vascular Access Dvce: No Musculoskeletal: No Neurologic: Yes Psychiatric: No Reproductive: No Respiratory: No Immunizations Current: Yes Seizures: Yes Menopausal: Yes Past Surgical History Hysterectomy: No Tonsillectomy: Yes Other Surgery: No Social History Alcohol Use: No Tobacco Use: No (QUIT 50 YRS +) Substance Use: No Allergies-Medications (Allergen,Severity, Reaction): Coded Allergies: codeine (Unverified Allergy, Severe, increases seizure activity, 10/01/16) Reported Meds & Prescriptions Reported Meds & Active Scripts Active Lisinopril 20 Mg Tab 20 Mg PO BID Meclizine (Meclizine HCl) 12.5 Mg Tab 12.5 Mg PO TID PRN Reported Lamictal (Lamotrigine) 100 Mg Tab 100 Mg PO TID Review of Systems Except as stated in HPI: all other systems reviewed are Neg Eyes: Positive: Blurred Vision HENT: No: Headaches Cardiovascular: No: Chest Pain or Discomfort Respiratory: No: Shortness of Breath Gastrointestinal: No: Nausea, Vomiting Neurologic: Positive: Paresthesia, Seizures, No: Weakness, Dizziness, Headache , Change in Mentation, Slurred Speech Physical Exam Narrative GENERAL: Awake and alert in no acute distress. SKIN: Warm and dry. HEAD: Atraumatic. Normocephalic. EYES: Pupils equal and round. Extraocular movements are intact. ENT: No nasal bleeding or discharge. Mucous membranes pink and moist. NECK: Trachea midline. Neck is supple. CARDIOVASCULAR: Regular rate and rhythm. Heart sounds are normal. RESPIRATORY: No accessory muscle use. Lungs are clear with full air movement throughout. GASTROINTESTINAL: Abdomen soft, non-tender, nondistended. MUSCULOSKELETAL: No obvious deformities. No edema. NEUROLOGICAL: Awake and alert. No cranial nerve deficits. Tongue protrudes in the midline. Motor grossly within normal limits. Negative pronator drift. Negative Babinski sign. Normal speech. PSYCHIATRIC: Appropriate mood and affect; insight and judgment normal. Data Data Last Documented VS Vital Signs Date Time Temp Pulse Resp B/P (MAP) Pulse Ox O2 Delivery O2 Flow Rate FiO2 10/01/16 07:29 97 Room Air 10/01/16 07:26 97.9 67 16 193/82 (119) Orders Orders Electrocardiogram (10/01/16 07:22) Prothrombin Time / Inr (Pt) (10/01/16 07:22) Act Partial Throm Time (Ptt) (10/01/16 07:22) Complete Blood Count With Diff (10/01/16 07:22) Basic Metabolic Panel (Bmp) (10/01/16 07:22) Ct Brain W/O Iv Contrast(Rout) (10/01/16 07:22) Ecg Monitoring (10/01/16 07:22) Iv Access Insert/Monitor (10/01/16 07:22) Oximetry (10/01/16 07:22) Sodium Chloride 0.9% Flush (Ns Flush) (10/01/16 07:30) Labs Laboratory Tests Test 10/01/16 07:51 White Blood Count 5.2 TH/MM3 Red Blood Count 3.93 MIL/MM3 Hemoglobin 11.8 GM/DL Hematocrit 35.7 % Mean Corpuscular Volume 90.7 FL Mean Corpuscular Hemoglobin 29.9 PG Mean Corpuscular Hemoglobin Concent 33.0 % Red Cell Distribution Width 13.9 % Platelet Count 247 TH/MM3 Mean Platelet Volume 7.0 FL Neutrophils (%) (Auto) 48.7 % Lymphocytes (%) (Auto) 31.6 % Monocytes (%) (Auto) 15.0 % Eosinophils (%) (Auto) 3.5 % Basophils (%) (Auto) 1.2 % Neutrophils # (Auto) 2.5 TH/MM3 Lymphocytes # (Auto) 1.6 TH/MM3 Monocytes # (Auto) 0.8 TH/MM3 Eosinophils # (Auto) 0.2 TH/MM3 Basophils # (Auto) 0.1 TH/MM3 CBC Comment DIFF FINAL Differential Comment Prothrombin Time 11.3 SEC Prothromb Time International Ratio 1.0 RATIO Activated Partial Thromboplast Time 32.2 SEC Blood Urea Nitrogen 26 MG/DL Creatinine 0.80 MG/DL Random Glucose 88 MG/DL Calcium Level 9.6 MG/DL Sodium Level 136 MEQ/L Potassium Level 4.4 MEQ/L Chloride Level 101 MEQ/L Carbon Dioxide Level 27.4 MEQ/L Anion Gap 8 MEQ/L Estimat Glomerular Filtration Rate 70 ML/MIN MDM Medical Decision Making Medical Screen Exam Complete: Yes Emergency Medical Condition: Yes Medical Record Reviewed: Yes (this patient was here in June with similar symptoms. She initially had a CT of the head which showed some atrophy. She subsequently had an MRI/MRA of the MRI showed atrophy and the MRA was negative. She also had carotid ultrasounds which were negative) Interpretation(s) Her EKG shows a normal sinus rhythm with no acute changes. Differential Diagnosis Differential diagnosis includes but is not limited to TIA, CVA, brain tumor, migraine, anxiety Narrative Course This patient presents for the evaluation of left-sided numbness. She has no physical exam findings. She was previously fully evaluated in June with no etiology found to explain localized neurological symptoms. 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 No acute change her findings Arun Beltran MD CBC & BMP Diagram 10/01/16 07:51 Calcium Level 9.6 No etiology for this patient's symptoms was found. She has a normal neurological exam. The history, exam, diagnostic testing, and current condition do not suggest any significant pathology to warrant further testing, continued ED treatment, admission, or surgical evaluation at this point. The patient's condition is stable and appropriate for discharge. Diagnosis Primary Impression: Paresthesias Patient Instructions: General Instructions, Paresthesia (ED) Disposition: 01 DISCHARGE HOME Condition: Stable Joellen Blackwell MD Oct 01, 2016 08:18
[2016-10-01 08:39] VITALS: BP 164/79; PULSE 70; RESP 16; O2SAT 98
== END 2016-10-01 08:47 | disposition home or self-care (01) ==
LOC: PHED 07:17
DX: R20.2 Paresthesia of skin (principal); Z86.73 Personal history of transient ischemic attack (TIA), and cerebral infarction without residual deficits; K21.9 Gastro-esophageal reflux disease without esophagitis; J44.9 Chronic obstructive pulmonary disease, unspecified; Z87.891 Personal history of nicotine dependence; R56.9 Unspecified convulsions
CPT/HCPCS: 70450; 80048; 85025; 85610; 85730; 93005; 99285

== ENCOUNTER 2017-07-22 19:56 | Observation (INO) | payer MEDICARE ==
[~2017-07-22] VITALS: Ht 157.5 cm; Wt 57.1 kg
[2017-07-22 20:14] VITALS: BP 169/72; PULSE 61; RESP 16; TEMP 98.3; O2SAT 97
--- NOTE | 2017-07-22 20:40 | PD ---
HPI Chief Complaint: Musculoskeletal Complaint Time Seen by Provider: 20:39 Travel History International Travel<30 days: No Contact w/Intl Traveler<30days: No Traveled to known affect area: No History of Present Illness HPI 76-year-old female came to the emergency room with history of left-sided chest pain radiating to her left axilla and back. Patient says it started this afternoon. She says she walked for 2 miles after which the pain started. It has not gone away. It seems to worsen when she takes a deep breath sometimes. It is there all the time and somewhat sharp in nature. She has had some cough this morning but no hemoptysis or colored sputum production. No history of fever or chills. Patient has never had this kind of pain in the past. She is not a smoker. She has not taken anything for the pain at home. Vital signs appear to be within normal limits. PFSH Past Medical History Narrative Medical List of her past medical, surgical, social and family history is reviewed from the nursing note. Hx Anticoagulant Therapy: No Cancer: No Cardiovascular Problems: No Chemotherapy: No COPD: Yes Cerebrovascular Accident: Yes (states hx of) Diabetes: No Diminished Hearing: No Endocrine: No Gastrointestinal Disorders: No GERD: Yes Genitourinary: No Hypertension: Yes Immune Disorder: No Implanted Vascular Access Dvce: No Musculoskeletal: No Neurologic: Yes Psychiatric: No Reproductive: No Respiratory: No Immunizations Current: Yes Seizures: Yes Tetanus Vaccination: < 5 Years Influenza Vaccination: Yes ?: Not Menopausal: Yes Past Surgical History Hysterectomy: No Tonsillectomy: Yes Other Surgery: No Social History Alcohol Use: No Tobacco Use: No (QUIT 50 YRS +) Substance Use: No Allergies-Medications (Allergen,Severity, Reaction): Coded Allergies: codeine (Unverified Allergy, Severe, increases seizure activity, 07/22/17) Comments List of her allergies reviewed from the nursing note. Reported Meds & Prescriptions Reported Meds & Active Scripts Active Lisinopril 20 Mg Tab 20 Mg PO BID Reported Lamictal (Lamotrigine) 100 Mg Tab 100 Mg PO TID Narrative Medication List of her home medications reviewed from the nursing note. Review of Systems Except as stated in HPI: all other systems reviewed are Neg Cardiovascular: Positive: Chest Pain or Discomfort Physical Exam Narrative GENERAL: Awake, alert, mild distress SKIN: Focused skin assessment warm/dry. HEAD: Atraumatic. Normocephalic. EYES: Pupils equal and round. No scleral icterus. No injection or drainage. ENT: No nasal bleeding or discharge. Mucous membranes pink and moist. NECK: Trachea midline. No JVD. CARDIOVASCULAR: Regular rate and rhythm. No murmur appreciated. RESPIRATORY: No accessory muscle use. Clear to auscultation. Breath sounds equal bilaterally. GASTROINTESTINAL: Abdomen soft, non-tender, nondistended. Hepatic and splenic margins not palpable. MUSCULOSKELETAL: No obvious deformities. No clubbing. No cyanosis. No edema. NEUROLOGICAL: Awake and alert. No obvious cranial nerve deficits. Motor grossly within normal limits. Normal speech. PSYCHIATRIC: Appropriate mood and affect; insight and judgment normal. Data Data Last Documented VS Orders Orders Electrocardiogram (07/22/17 20:48) Basic Metabolic Panel (Bmp) (07/22/17 20:48) Ckmb (Isoenzyme) Profile (07/22/17 20:48) Complete Blood Count With Diff (07/22/17 20:48) D-Dimer (07/22/17 20:48) Magnesium (Mg) (07/22/17 20:48) Prothrombin Time / Inr (Pt) (07/22/17 20:48) Act Partial Throm Time (Ptt) (07/22/17 20:48) Troponin I (07/22/17 20:48) Ecg Monitoring (07/22/17 20:48) Bilateral Bp Monitoring (07/22/17 20:48) Iv Access Insert/Monitor (07/22/17 20:48) Oximetry (07/22/17 20:48) Oxygen Administration (07/22/17 20:48) Aspirin Chew (Aspirin Chew) (07/22/17 21:00) Sodium Chloride 0.9% Flush (Ns Flush) (07/22/17 21:00) Chest, Pa & Lat (07/22/17 20:48) Ct Pulmonary Angiogram (07/22/17 ) Admit Order (Ed Use Only) (07/22/17 22:57) Labs Laboratory Tests Test 07/22/17 20:58 White Blood Count 5.8 TH/MM3 Red Blood Count 4.04 MIL/MM3 Hemoglobin 12.6 GM/DL Hematocrit 38.4 % Mean Corpuscular Volume 95.2 FL Mean Corpuscular Hemoglobin 31.3 PG Mean Corpuscular Hemoglobin Concent 32.9 % Red Cell Distribution Width 13.7 % Platelet Count 215 TH/MM3 Mean Platelet Volume 6.7 FL Neutrophils (%) (Auto) 62.6 % Lymphocytes (%) (Auto) 24.7 % Monocytes (%) (Auto) 10.2 % Eosinophils (%) (Auto) 1.7 % Basophils (%) (Auto) 0.8 % Neutrophils # (Auto) 3.7 TH/MM3 Lymphocytes # (Auto) 1.4 TH/MM3 Monocytes # (Auto) 0.6 TH/MM3 Eosinophils # (Auto) 0.1 TH/MM3 Basophils # (Auto) 0.0 TH/MM3 CBC Comment DIFF FINAL Differential Comment Prothrombin Time 10.6 SEC Prothromb Time International Ratio 1.0 RATIO Activated Partial Thromboplast Time 29.3 SEC D-Dimer Quantitative (PE/DVT) 0.67 MG/L FEU Blood Urea Nitrogen 18 MG/DL Creatinine 0.83 MG/DL Random Glucose 96 MG/DL Calcium Level 9.2 MG/DL Magnesium Level 2.1 MG/DL Sodium Level 139 MEQ/L Potassium Level 4.8 MEQ/L Chloride Level 103 MEQ/L Carbon Dioxide Level 30.7 MEQ/L Anion Gap 5 MEQ/L Estimat Glomerular Filtration Rate 67 ML/MIN Total Creatine Kinase 94 U/L Troponin I LESS THAN 0.02 NG/ML MDM Medical Decision Making Medical Screen Exam Complete: Yes Emergency Medical Condition: Yes Medical Record Reviewed: Yes Interpretation(s) Twelve-lead EKG was reviewed by me. Normal sinus rhythm, normal axis, bradycardia, nonspecific ST-T wave changes. Heart rate of 57 bpm. Differential Diagnosis ACS, PE, non-STEMI Narrative Course 8:54 PM waiting for blood test results to come back. Patient is given 162 mg of aspirin p.o. 9:40 PM blood test results are back and within acceptable limits except for the d-dimer which is slightly elevated. I will order a CT pulmonary angiogram at this point. 10:[address] pulmonary angiogram is negative for PE. I would like to admit the patient to rule out ACS. Awaiting for the hospitalist to call back. Procedures EKG Prior to Arrival: No Diagnosis Primary Impression: Chest pain Qualified Codes: R07.9 - Chest pain, unspecified Admitting Information Admitting Physician Requests: Observation Scripts Atorvastatin (Atorvastatin) 40 Mg Tab 40 MG PO HS for Cholesterol Management for 30 Days, #30 TAB 0 Refills Prov: Mariya Fowler 07/23/17 Aspirin (Tgt Aspirin) 81 Mg Chw 81 MG CHEW DAILY for cad prevention for 30 Days, #30 EA Prov: Mariya Fowler 07/23/17 Azithromycin (Azithromycin) 250 Mg Tab 500 MG PO DAILY for infection for 4 Days, #8 TAB Prov: Mariya Fowler 07/23/17 Mc Zepeda MD Jul 22, 2017 20:40
[2017-07-22] MEDS ORDERED: ASPIRIN 81 MG CHEW TAB PO ONE (21:00)
[2017-07-22] MEDS ORDERED: SODIUM CHLORIDE 0.9% FLUSH 10 ML FLUSH IVF PRN (21:00)
[2017-07-22 21:01] VITALS: O2SAT 97
[2017-07-22 21:03] LABS: AUTOMATED NEUTROPHIL # 3.7 TH/MM3 (1.8-7.7); BASOPHIL % 0.8 % (0.0-2.0); EOSINOPHIL # 0.1 TH/MM3 (0-0.4); EOSINOPHIL % 1.7 % (0.0-4.0); HEMATOCRIT 38.4 % (35.0-46.0); HEMOGLOBIN 12.6 GM/DL (11.6-15.3); LYMPH % 24.7 % (9.0-44.0); LYMPHOCYTE # 1.4 TH/MM3 (1.0-4.8); MEAN CELL VOLUME 95.2 FL (80.0-100.0); MEAN CORPUSCULAR HEMOGLOBIN 31.3 PG (27.0-34.0); MEAN CORPUSCULAR HGB CONC 32.9 % (32.0-36.0); MEAN PLATELET VOLUME 6.7 FL (7.0-11.0); MONO % 10.2 % (0.0-8.0); MONOCYTE # 0.6 TH/MM3 (0-0.9); NEUT % 62.6 % (16.0-70.0); PLATELET COUNT 215 TH/MM3 (150-450); RED BLOOD COUNT 4.04 MIL/MM3 (4.00-5.30); RED CELL DISTRIBUTION WIDTH 13.7 % (11.6-17.2); WHITE BLOOD COUNT 5.8 TH/MM3 (4.0-11.0)
[2017-07-22 21:09] VITALS: BP_SYST 159; BP_SYST 166; BP_DIAS 69; BP_DIAS 73; PULSE 63; RESP 16; O2SAT 98
[2017-07-22 21:19] LABS: CHLORIDE 103 MEQ/L (98-107); SODIUM (NA) 139 MEQ/L (136-145)
[2017-07-22 21:21] LABS: CALCIUM 9.2 MG/DL (8.5-10.1)
[2017-07-22 21:22] LABS: BICARBONATE 30.7 MEQ/L (21.0-32.0); BLOOD UREA NITROGEN 18 MG/DL (7-18); GLUCOSE,RANDOM 96 MG/DL (74-106); MAGNESIUM 2.1 MG/DL (1.5-2.5)
[2017-07-22 21:25] LABS: CREATININE 0.83 MG/DL (0.50-1.00); GLOMERULAR FILTRATION RATE 67 ML/MIN (>89)
[2017-07-22 21:27] LABS: PROTHROMBIN TIME - PATIENT 10.6 SEC (9.8-11.6)
--- NOTE | 2017-07-22 21:27 | RADRPT ---
EXAM DATE: 07/22/2017 9:24 PM EDT AGE/SEX: 76 years / Female INDICATIONS: Left chest pain and pressure under left breast, no known injury. CLINICAL DATA: This is the patient's initial encounter. Patient reports that signs and symptoms have been present for 1 day and indicates a pain score of 5/10. MEDICAL/SURGICAL HISTORY: None. None. COMPARISON: No prior exams available for comparison. FINDINGS: PA and lateral views of the chest demonstrate the minimal lingular density. Right lung clear. The car diomediastinal contours are unremarkable. Heart normal in size. Old right-sided rib fractures. CONCLUSION: Minimal lingular density could be atelectasis or minimal infiltrate. Electronically signed by: Dalton Gibbs MD 07/22/2017 9:26 PM EDT
[2017-07-22 21:30] LABS: TROPONIN I LESS THAN 0.02 NG/ML (0.02-0.05)
[2017-07-22 21:39] LABS: D-DIMER 0.67 MG/L FEU (0.00-0.50)
[2017-07-22 21:53] VITALS: BP 163/61; PULSE 58; RESP 18; O2SAT 99
--- NOTE | 2017-07-22 22:37 | RADRPT ---
EXAM DATE: 07/22/2017 10:29 PM EDT AGE/SEX: 76 years / Female INDICATIONS: Left rib pain. CLINICAL DATA: This is the patient's initial encounter. Patient reports that signs and symptoms have been present for 1 day and indicates a pain score of 5/10. MEDICAL/SURGICAL HISTORY: Cerebrovascular disease. Hypertension. Chronic obstructive pulmonary di sease. Tonsillectomy. RADIATION DOSE: 6.19 CTDI (mGy) COMPARISON: No prior exams available for comparison. TECHNIQUE: Volumetric scanning was performed using a multi-row detector CT scanner during bolus infu destinee of 73 ml Omnipaque 350 (iohexol) nonionic water-soluble contrast as a single exam dose. The fred a was post processed with a variety of visualization algorithms including full volume maximum intensi ty projection and sliding thin slab reformation. Using automated exposure control and adjustment of the mA and/or kV according to patient size, radiation dose was kept as low as reasonably achievable t o obtain optimal diagnostic quality images. FINDINGS: Pulmonary Arteries: No filling defects are seen in the pulmonary arteries out to the subsegmental ve ssels. The left and right pulmonary arteries are normal in diameter. Lung: No infiltrates seen. Dependent densities in the lower lobes likely atelectasis. Effusion: None. Mediastinum: No evidence of mediastinal or hilar adenopathy. Coronary artery calcifications. Other: The axilla is unremarkable. Old right-sided rib fractures. No left-sided rib fracture seen. D egenerative changes thoracic spine. Nodule left upper quadrant likely adrenal adenoma measuring 18 mm . CONCLUSION: 1. No evidence for pulmonary. 2. Coronary artery calcifications. Electronically signed by: Dalton Gibbs MD 07/22/2017 10:36 PM EDT
[2017-07-22] MEDS ORDERED: IOHEXOL 350 MG/ML 10 ML VIAL (for RAD DIAG) IVCONTRAST ONE (23:00)
[2017-07-22 23:04] VITALS: BP 183/81; PULSE 65; RESP 18; O2SAT 99
[2017-07-23] VITALS (8 sets, daily range): BP systolic 141–174; BP diastolic 67–99; PULSE 58–62; RESP 18–20; TEMP 96–96.6; O2SAT 95–100
[2017-07-23] MEDS ORDERED: MORPHINE SULFATE 4 MG/ML INJ IV PUSH PRN
[2017-07-23] MEDS ORDERED: NITROGLYCERIN 0.4 MG SL 25 TABS/BTL SL PRN
[2017-07-23] MEDS ORDERED: ACETAMINOPHEN 500 MG CPLT PO PRN
[2017-07-23] MEDS ORDERED: SODIUM CHLORIDE 0.9% FLUSH 10 ML FLUSH IV FLUSH PRN
[2017-07-23] MEDS ORDERED: ASPIRIN 81 MG CHEW TAB PO ONE
[2017-07-23 00:33] LABS: TROPONIN I LESS THAN 0.02 NG/ML (0.02-0.05)
[2017-07-23] MEDS: SODIUM CHLOR 0.9% 1000 ML INJ 1,000 ML IV SCH ×2 (00:48→10:15)
[2017-07-23 03:34] LABS: TROPONIN I LESS THAN 0.02 NG/ML (0.02-0.05)
--- NOTE | 2017-07-23 07:05 | EKG ---
Date Performed: 07/23/2017 Time Performed: 02:55:45 PTAGE: 76 years EKG: SINUS BRADYCARDIA WITH OCCASIONAL SUPRAVENTRICULAR PREMATURE COMPLEXES POSSIBLE RIGHT VENTR ICULAR CONDUCTION DELAY BORDERLINE ECG PREVIOUS TRACING : 07/23/2017 00.10 No significant change from previous tracing noted. DOCTOR: Leodan Amaya Interpretating Date/Time 07/23/2017 07:04:27
--- NOTE | 2017-07-23 07:05 | EKG ---
Date Performed: 07/23/2017 Time Performed: 00:10:01 PTAGE: 76 years EKG: SINUS BRADYCARDIA POSSIBLE RIGHT VENTRICULAR CONDUCTION DELAY BORDERLINE ECG PREVIOUS TRACING : 07/22/2017 21.31 No significant change from previous tracing noted. DOCTOR: Leodan Amaya Interpretating Date/Time 07/23/2017 07:03:47
--- NOTE | 2017-07-23 07:07 | EKG ---
Date Performed: 07/22/2017 Time Performed: 21:31:56 PTAGE: 76 years EKG: SINUS BRADYCARDIA POSSIBLE RIGHT VENTRICULAR CONDUCTION DELAY BORDERLINE ECG PREVIOUS TRACING : 10/01/2016 07.31 No significant change from previous tracing noted. DOCTOR: Leodan Amaya Interpretating Date/Time 07/23/2017 07:05:37
--- NOTE | 2017-07-23 08:12 | HHI.HP ---
[facility] Service [facility] Primary Care Physician Scott Tarango MD Admission Diagnosis Chest pain, rule out ACS Diagnoses: (1) Chest pain Chief Complaint: Chest pain Travel History International Travel<30 Days: No Contact w/Intl Traveler <30 Da: No Traveled to Known Affected Are: No History of Present Illness This is a pleasant 76-year-old female patient with a known medical history of COPD who presented to the ED with complaints of left-sided chest pain. Patient states that she walked 4 miles yesterday in the heat, when she arrived back home around 1400 she developed a left-sided chest pain that radiated to the back. She states that the pain was squeezing and pressure-like in nature, rated the pain an 8 out of 10 at its worst on pain scale, roughly lasted around 4 hours, she states that she went to bed to "try to sleep off the pain" and awoke around 1800 with the pain still present which led to her presentation. Patient states that the pain improved upon presentation to the ED, was given aspirin. She states the pain was worse when taking a deep breath. Denies any associated nausea, vomiting, diaphoresis. Patient does admit to associated shortness of breath with the pain. Denies ever having this type of pain before. Does admit to a nonproductive cough for the past few days, denies any recent fever, chills , headache, abdominal pain, nausea, vomiting, diarrhea or dysuria. Patient denies ever having a cardiac stress test in the past. 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 PCP is Dr. Tarango. Review of Systems Constitutional: COMPLAINS OF: Fatigue, DENIES: Fever, Chills Eyes: DENIES: Diplopia Ears, nose, mouth, throat: DENIES: Vertigo Respiratory: COMPLAINS OF: Cough, Shortness of breath, DENIES: Sputum production Cardiovascular: COMPLAINS OF: Chest pain, DENIES: Palpitations, Lower Extremity Edema Gastrointestinal: DENIES: Abdominal pain, Black stools, Bloody stools, Constipation, Diarrhea, Nausea, Vomiting Musculoskeletal: DENIES: Joint pain Hematologic/lymphatic: DENIES: Bruising Immunologic/allergic: DENIES: Eczema Neurologic: DENIES: Abnormal gait Psychiatric: COMPLAINS OF: Anxiety Except as stated in HPI: all other systems reviewed are Neg Past Family Social History Past Medical History COPD GERD Hypertension History of epilepsy Past Surgical History Tonsillectomy Reported Medications Active Lisinopril 20 Mg Tab 20 Mg PO BID Reported Lamictal (Lamotrigine) 100 Mg Tab 100 Mg PO TID Allergies: Coded Allergies: codeine (Unverified Allergy, Severe, increases seizure activity, 07/22/17) Active Ordered Medications Current Medications Medications (Trade) Dose Ordered Sig/Adia Route Start Time Stop Time Status Last Admin Sodium Chloride 1,000 ml @ 100 mls/hr Q10H IV 07/22/17 23:53 07/23/17 00:48 (NS Flush) 2 ml UNSCH PRN IV FLUSH 07/23/17 00:00 (NS Flush) 2 ml BID IV FLUSH 07/23/17 09:00 (Tylenol) 500 mg Q4H PRN PO 07/23/17 00:00 (Morphine Inj) 2 mg Q4H PRN IV PUSH 07/23/17 00:00 (Protonix) 40 mg DAILY PO 07/23/17 09:00 07/23/17 07:55 (Nitrostat Sl) 0.4 mg Q5M PRN SL 07/23/17 00:00 (Zithromax) 500 mg DAILY PO 07/23/17 09:00 07/23/17 08:36 (LaMICtal) 100 mg TID PO 07/23/17 09:00 07/23/17 08:36 (Prinivil) 20 mg BID PO 07/23/17 09:00 07/23/17 08:36 Family History Denies any significant family medical history. Social History Patient admits to history of tobacco abuse, states she quit 30 years ago and smoked for many years. Denies any alcohol or illicit drug use. Physical Exam Vital Signs Vital Signs Date Time Temp Pulse Resp B/P (MAP) Pulse Ox O2 Delivery O2 Flow Rate FiO2 07/23/17 03:10 96.2 60 20 174/99 (124) 97 07/23/17 00:48 60 07/23/17 00:30 96.6 60 20 150/89 (109) 100 07/23/17 00:15 60 16 141/71 (94) 98 07/23/17 00:12 99 21 07/22/17 23:04 65 18 183/81 (115) 99 Room Air 07/22/17 21:53 58 18 163/61 (95) 99 Room Air 07/22/17 21:09 63 16 159/73 (101) 98 Room Air 166/69 (101) 07/22/17 21:01 97 Room Air 07/22/17 21:01 97 Room Air 07/22/17 20:30 58 20 07/22/17 20:14 98.3 61 16 169/72 (104) 97 Physical Exam GENERAL: Well-developed, well-nourished patient in [facility]. SKIN: Warm and dry. No rash. HEAD: Normocephalic. Atraumatic. EYES: Pupils equal and round. No scleral icterus. No injection or drainage. ENT: No nasal bleeding or discharge. Mucous membranes pink and moist. NECK: Supple. Trachea midline. CARDIOVASCULAR: Regular rate and rhythm. S1, S2 noted. No murmur appreciated. Mild left chest discomfort to palpation. RESPIRATORY: No accessory muscle use. Clear to auscultation. Breath sounds equal bilaterally. GASTROINTESTINAL: Abdomen soft, non-tender, nondistended. Normoactive bowel sounds x4. MUSCULOSKELETAL: No obvious deformities. Extremities without clubbing, cyanosis , or edema. NEUROLOGICAL: Awake and alert. No obvious cranial nerve deficits. Motor grossly within normal limits. 5/5 muscle strength in bilateral upper and lower extremities. Normal speech. PSYCHIATRIC: Appropriate mood and affect; insight and judgment normal. Laboratory Laboratory Tests Test 07/22/17 20:58 07/23/17 00:06 07/23/17 03:10 White Blood Count 5.8 Red Blood Count 4.04 Hemoglobin 12.6 Hematocrit 38.4 Mean Corpuscular Volume 95.2 Mean Corpuscular Hemoglobin 31.3 Mean Corpuscular Hemoglobin Concent 32.9 Red Cell Distribution Width 13.7 Platelet Count 215 Mean Platelet Volume 6.7 Neutrophils (%) (Auto) 62.6 Lymphocytes (%) (Auto) 24.7 Monocytes (%) (Auto) 10.2 Eosinophils (%) (Auto) 1.7 Basophils (%) (Auto) 0.8 Neutrophils # (Auto) 3.7 Lymphocytes # (Auto) 1.4 Monocytes # (Auto) 0.6 Eosinophils # (Auto) 0.1 Basophils # (Auto) 0.0 CBC Comment DIFF FINAL Differential Comment Prothrombin Time 10.6 Prothromb Time International Ratio 1.0 Activated Partial Thromboplast Time 29.3 D-Dimer Quantitative (PE/DVT) 0.67 Blood Urea Nitrogen 18 Creatinine 0.83 Random Glucose 96 Calcium Level 9.2 Magnesium Level 2.1 Sodium Level 139 Potassium Level 4.8 Chloride Level 103 Carbon Dioxide Level 30.7 Anion Gap 5 Estimat Glomerular Filtration Rate 67 Total Creatine Kinase 94 85 86 Troponin I LESS THAN 0.02 LESS THAN 0.02 LESS THAN 0.02 Result Diagram: 07/22/17205707/22/172057 Imaging Last Impressions Chest X-Ray 07/22/172047 Signed Impressions: CONCLUSION: Minimal lingular density could be atelectasis or minimal infiltrate. CT Angiography 07/22/17 0000 Signed Impressions: CONCLUSION: 1. No evidence for pulmonary. 2. Coronary artery calcifications. Septic Shock Reassessment Septic shock perfusion: reassessment completed Caprini VTE Risk Assessment Caprini VTE Risk Assessment: Mod/High Risk (score >= 2) Caprini Risk Assessment Model Point Value = 1 Point Value = 2 Point Value = 3 Point Value = 5 Age 41-60 Minor surgery BMI > 25 kg/m2 Swollen legs Varicose veins or History of unexplained or recurrent spontaneous Oral contraceptives or hormone replacement Sepsis (< 1 month) Serious lung disease, including pneumonia (< 1 month) Abnormal pulmonary function Acute myocardial infarction Congestive heart failure (< 1 month) History of inflammatory bowel disease Medical patient at bed rest Age 61-74 Arthroscopic surgery Major open surgery (> 45 min) Laparoscopic surgery (> 45 min) Malignancy Confined to bed (> 72 hours) Immobilizing plaster cast Central venous access Age >= 75 History of VTE Family history of VTE Factor V Leiden Prothrombin [id number] Lupus anticoagulant Anticardiolipin antibodies Elevated serum homocysteine Heparin-induced thrombocytopenia Other congenital or acquired thrombophilia Stroke (< 1 month) Elective arthroplasty Hip, pelvis, or leg fracture Acute spinal cord injury (< 1 month) Prophylaxis Regimen Total Risk Factor Score Risk Level Prophylaxis Regimen 0-1 Low Early ambulation 2 Moderate Order ONE of the following: *Sequential Compression Device (SCD) *Heparin 5000 units SQ BID 3-4 Higher Order ONE of the following medications: *Heparin 5000 units SQ TID *Enoxaparin/Lovenox 40 mg SQ daily (WT < 150 kg, CrCl > 30 mL/min) *Enoxaparin/Lovenox 30 mg SQ daily (WT < 150 kg, CrCl > 10-29 mL/min) *Enoxaparin/Lovenox 30 mg SQ BID (WT < 150 kg, CrCl > 30 mL/min) AND/OR *Sequential Compression Device (SCD) 5 or more Highest Order ONE of the following medications: *Heparin 5000 units SQ TID (Preferred with Epidurals) *Enoxaparin/Lovenox 40 mg SQ daily (WT < 150 kg, CrCl > 30 mL/min) *Enoxaparin/Lovenox 30 mg SQ daily (WT < 150 kg, CrCl > 10-29 mL/min) *Enoxaparin/Lovenox 30 mg SQ BID (WT < 150 kg, CrCl > 30 mL/min) AND *Sequential Compression Device (SCD) Assessment and Plan Problem List: (1) Chest pain ICD Code: R07.9 - Chest pain, unspecified Status: Acute Plan: Patient has been admitted to the chest pain center for observation. Serial EKGs and serial troponins have been ordered for ruling out ACS purposes. Serial troponins flat. EKG reviewed showing normal sinus bradycardia with controlled heart rate, some PVCs noted as well as possible LVH, no ST changes to indicate ischemia. Will continue on cardiac telemetry, monitor for any arrhythmias. No arrhythmias overnight. Patient was given aspirin in the ED. Will continue daily. Pain control with morphine IV as needed per pain scale. Nitroglycerin as needed for chest pain. Patient will undergo a cardiac Lexiscan to further rule out any possibility of ischemia. Further hospitalization and treatment plan will depend on nuclear imaging results. Patient is stable at this time and agreeable to the plan. At the time of assessment patient does complain of mild left-sided chest discomfort to palpation. Will provide 1 dose of IV Toradol, assess response. CBC and BMP reviewed and essentially unremarkable. Chest x-ray with lingular density, indicative of atelectasis versus minimal infiltrate. D-dimer was mildly elevated, a CTA was done, reviewed and showing no PE with presence of coronary artery calcifications. There was no infiltrate seen. Patient does present with cough. Started on a Z-Delvin, will continue till completion. Will add lipid panel to labs. Follow. (2) HTN (hypertension) ICD Code: I10 - Essential (primary) hypertension Status: Acute Plan: Continue home medications. Monitor blood pressure trends. DVT prophylaxis: SCDs. Assessment and Plan Patient underwent Lexiscan, adequate EF with report of small and area of ischemia in the lateral wall. Results called to Dr. Paredes, water fabricator operator on- call who reviewed images and states that she could be placed on aspirin, statin and a beta-jen if heart rate tolerated and to follow-up outpatient. Patient symptoms have resolved. Patient is feeling at her baseline. States she agrees to the plan and will follow up outpatient. At this time patient's heart rate is been anywhere from 58-65 bpm, will hold on data jen for now and allow patient to follow-up with PCP. Started atorvastatin and aspirin. Problem Qualifiers (1) Chest pain: Qualified Codes: R07.9 - Chest pain, unspecified Mariya Fowler Jul 23, 2017 08:12
[2017-07-23] MEDS ORDERED: KETOROLAC TROMETHAMINE 30 MG/ML (IVP) VIAL IV PUSH ONE (08:15)
[2017-07-23] MEDS: lamoTRIgine 100 MG TAB PO SCH ×2 (08:36→12:30)
[2017-07-23] MEDS ORDERED: AZITHROMYCIN 250 MG TAB PO SCH (09:00)
[2017-07-23] MEDS ORDERED: PANTOPRAZOLE SOD 40 MG DELAYED RELEASE TAB PO SCH (09:00)
[2017-07-23] MEDS ORDERED: SODIUM CHLORIDE 0.9% FLUSH 10 ML FLUSH IV FLUSH SCH (09:00)
[2017-07-23] MEDS ORDERED: LISINOPRIL 20 MG TAB PO SCH (09:00)
[2017-07-23] MEDS ORDERED: DONE5TAB8 (11:08)
[2017-07-23] MEDS ORDERED: OCUVTAB PO (11:09)
[2017-07-23] MEDS ORDERED: REGADENOSON INJ 0.4 MG/5 ML SYR IV ONE (11:25)
[2017-07-23] MEDS ORDERED: ASPI81 CHEW (12:38)
[2017-07-23] MEDS ORDERED: AZIT250T3 PO (12:38)
--- NOTE | 2017-07-23 12:39 | HHI.DCPOC ---
Discharge Care Plan Diagnosis: (1) Seizure disorder (2) COPD (chronic obstructive pulmonary disease) (3) HTN (hypertension) (4) Chest pain Goals to Promote Your Health * To prevent worsening of your condition and complications * To maintain your health at the optimal level Directions to Meet Your Goals Take your medications as prescribed Follow your dietary instruction Follow activity as directed Keep your appointments as scheduled Take your immunizations and boosters as scheduled If your symptoms worsen call your PCP, if no PCP go to Urgent Care Center or Emergency Room Smoking is Dangerous to Your Health. Avoid second hand smoke Call the 24-hour hour crisis hotline for domestic abuse at Mariya Fowler Jul 23, 2017 12:39
[2017-07-23] MEDS ORDERED: ONDANSETRON ODT 4 MG TAB PO ONE (12:45)
--- NOTE | 2017-07-23 13:34 | RADRPT ---
EXAM DATE: 07/23/2017 12:46 PM EDT AGE/SEX: 76 years / Female INDICATIONS:Angina. . Left sided chest pain radiating to back. CLINICAL DATA: This is the patient's initial encounter. Patient reports that signs and symptoms have been present for 1 day and indicates a pain score of 5/10. MEDICAL/SURGICAL HISTORY: Chronic obstructive pulmonary disease. Hypertension. Tonsillectomy. COMPARISON: No prior exams available for comparison. DOSE: 8.5 mCi Tc 99m Myoview at rest 25.4 mCi [id number] at stress 0.4 mg Lexiscan STRESS SYMPTOMS: Asymptomatic. EJECTION FRACTION: 60 % TECHNIQUE: The patient underwent pharmacologic stress with infusion of prescribed dose. Continuous ECG tracing was monitored during stress. Gated SPECT imaging was performed after stress and conventi onal SPECT imaging was performed at rest. The examination was performed on a SPECT/CT scanner, both attenuation and non-corrected datasets were reviewed. FINDINGS: The best perfused myocardium is the anterior lateral wall. There are no fixed defects to suggest infa rction. There Is a small area redistribution inferior lateral wall towards the base with moderate gut overlap.. Ejection fraction is 60% with mild hypokinesis of the segment. RISK CATEGORY: Low (<1% Annual Motality Rate) CONCLUSION: 1. Minimal redistribution small segment inferior lateral wall with moderate gut overlap. This could represent stress-induced ischemia. Correlation suggested. Electronically signed by: Alex Estrada MD 07/23/2017 1:33 PM EDT
[2017-07-23] MEDS ORDERED: ATOR40TA16 PO (14:33)
--- NOTE | 2017-07-23 18:14 | TR ---
Date Performed: 07/23/2017 Time Performed: 11:37:17 DOCTOR: Helena Hollingsworth DRUG LIST: CLINICAL HISTORY: CHEST PAIN REASON FOR TEST: Chest pain REASON FOR ENDING: OBSERVATION: CONCLUSION: Lexiscan stress test was performed under standard four minute protocol. Radionuclid e was injected one minute prior to ending the test. No electrocardiographic abormalities were present to suggest ischemia. Nuclear imaging and interpretation are pending. COMMENTS: no ischemia
[2017-07-23 19:25] LABS: CHOLESTEROL/ HDL RATIO 2.71 RATIO; HDL CHOLESTEROL 70.1 MG/DL (40.0-60.0)
[2017-07-24] MEDS ORDERED: ASPIRIN 81 MG CHEW TAB CHEW SCH (09:00)
== END 2017-07-23 15:23 | disposition home or self-care (01) ==
LOC: PHEFT 19:56 → PHEDA 22:59 → PH3A 07-23 00:21
PROVIDERS: ADMIT Hospitalist; ATTEND Hospitalist
DX: R07.9 Chest pain, unspecified (principal); R05 Cough; J44.9 Chronic obstructive pulmonary disease, unspecified; Z86.73 Personal history of transient ischemic attack (TIA), and cerebral infarction without residual deficits; K21.9 Gastro-esophageal reflux disease without esophagitis; I10 Essential (primary) hypertension; R56.9 Unspecified convulsions; Z79.899 Other long term (current) drug therapy; R00.1 Bradycardia, unspecified; R53.83 Other fatigue; R06.02 Shortness of breath; Z87.891 Personal history of nicotine dependence; I67.9 Cerebrovascular disease, unspecified; I25.10 Atherosclerotic heart disease of native coronary artery without angina pectoris; R94.31 Abnormal electrocardiogram [ECG] [EKG]
CPT/HCPCS: 71046; 71275; 78452; 80048; 80061; 82550; 83735; 84484; 85025; 85379; 85610; 85730; 93005; 93017; 96361; 96374; 99285; A9502; G0378; J1885; J2785; J7030; Q9967